=== PATIENT | male | born 1970 | race Caucasian/White ===

== ENCOUNTER 2018-04-01 08:52 | Emergency (ER) | payer OTHER ==
[2018-04-01] MEDS ORDERED: Tetracaine 0.5% OPTH.SOL 4 ML* 1 DROP BTL BOTH EYES ONE (10:07)
[2018-04-01] MEDS ORDERED: Fluorescein Sod TOPICAL 0.6* 0.6 MG TEST OPHTHALMIC ONE ×2 (10:08→10:30)
[2018-04-01] MEDS ORDERED: Sulfacetamide 10 % OPTH.SOL LEFT EYE ONE (10:45)
[2018-04-01 11:36] VITALS: BP 110/66
--- NOTE | 2018-04-22 07:35 | ED ---
San[facility] Nieto Stephanie, scribed for Fercho Butcher MD on 04/01/18 at 1026 . Throat Pain/Nasal Congestion - HPI Summary HPI Summary: The pt is a 47 y/o M presenting to the ED with c/o L sclera redness that began this morning when he woke up. The pt reports he was weed wacking yesterday when he felt something enter his L eye. He states when he looked to the side he saw what looked like a mcrae-colored sheet but that image has since resolved. Today he denies eye pain or vision changes. - History of Current Complaint Chief Complaint: EDEyeProblem Time Seen by Provider: 04/01/18 10:04 Hx Obtained From: Patient Onset/Duration: Sudden Onset, Lasting Hours, Still Present - Allergies/Home Medications Allergies/Adverse Reactions: Allergies Allergy/AdvReac Type Severity Reaction Status Date / Time No Known Allergies Allergy Verified 04/01/18 08:58 Home Medications: Home Medications NK [No Home Medications Reported] 04/01/18 [History Confirmed 04/01/18] PMH/Surg Hx/FS Hx/Imm Hx Sensory History: Denies: Hx Legally Blind EENT History: Denies: Hx Deafness - Surgical History Surgery Procedure, Year, and Place: NONE Infectious Disease History: No Infectious Disease History: Denies: Traveled Outside the [place] in Last 30 Days - Family History Known Family History: Negative: Renal Disease - Social History Occupation: Employed Full-time Lives: With Family Alcohol Use: Occasionally Hx Substance Use: No Substance Use Type: Reports: None Hx Tobacco Use: No Smoking Status (MU): Never Smoked Tobacco Have You Smoked in the Last Year: No Review of Systems Negative: Fever, Chills Eyes: Negative - pain Positive: Erythema. Negative: Blurred Vision Negative: Sore Throat Negative: Chest Pain Negative: Shortness Of Breath, Cough Negative: Abdominal Pain, Vomiting, Nausea Negative: dysuria, hematuria Negative: Myalgia, Edema Negative: Rash Neurological: Negative - Dizziness All Other Systems Reviewed And Are Negative: Yes Physical Exam - Summary Physical Exam Summary: Constitutional: Well-developed, Well-nourished, Alert. (-) Distressed Skin: Warm, Dry HENT: Normocephalic; Atraumatic Eyes- Slit lamp exam: No foreign body, no cells or flare, subconjunctival hemorrhage in L eye at 9 o'clock position . No foreign body identified. Negative goldie test, positive fluorescein uptake at 9 o'clock position. Neck: Musculoskeletal ROM normal neck. (-) JVD, (-) Stridor, (-) Tracheal deviation Cardio: Rhythm regular, rate normal, Heart sounds normal; Intact distal pulses; The pedal pulses are 2+ and symmetric. Radial pulses are 2+ and symmetric. (-) Murmur Pulmonary/Chest wall: Effort normal. (-) Respiratory distress, (-) Wheezes, (-) Rales Abd: Soft, (-) Tenderness, (-) Distension, (-) Guarding, (-) Rebound Musculoskeletal: (-) Edema Lymph: (-) Cervical adenopathy Neuro: Alert, Oriented x3 Psych: Mood and affect Normal Triage Information Reviewed: Yes Vital Signs On Initial Exam: Initial Vitals Temp Pulse Resp BP Pulse Ox 97.7 F 77 16 113/80 99 04/01/18 08:54 04/01/18 08:54 04/01/18 08:54 04/01/18 08:54 04/01/18 08:54 Vital Signs Reviewed: Yes Diagnostics - Vital Signs Vital Signs Temp Pulse Resp BP Pulse Ox 04/01/18 08:54 97.7 F 77 16 113/80 99 - Laboratory Lab Statement: Any lab studies that have been ordered have been reviewed, and results considered in the medical decision making process. EENT Course/Dx - Course Course Of Treatment: The pts visual disturbance lasted for minutes and resolved. ED physician does not expect retinal detachment. - Diagnoses Provider Diagnoses: Corneal abrasion Discharge - Sign-Out/Discharge Documenting (check all that apply): Discharge/Admit/Transfer - Discharge - Discharge Plan Condition: Stable Disposition: HOME Referrals: Umair Flannery MD [Medical Doctor] - 2 Days Additional Instructions: Return to the ED for new or worsening symptoms. Use eye drops 6x per day. The documentation as recorded by the [facility] mcclendon Stephanie accurately reflects the service I personally performed and the decisions made by Guadalupe biggs Jerry, MD.
== END 2018-04-01 11:35 | disposition home or self-care (01) ==
LOC: ED 08:52
DX: S05.02XA Injury of conjunctiva and corneal abrasion without foreign body, left eye, initial encounter (principal); W20.8XXA Other cause of strike by thrown, projected or falling object, initial encounter; Y93.H2 Activity, gardening and landscaping; Y92.9 Unspecified place or not applicable
CPT/HCPCS: 99282; A9270-GY